=== PATIENT | female | born 1965 | race Caucasian/White ===

== ENCOUNTER → 2017-08-23 09:34 | Outpatient (CLI) | payer SELFPAY ==
[2017-08-23 12:42] LABS: T4 Free Direct 1.13 ng/dL (0.76-1.46); Thyroid Stim Hormone (TSH) 1.92 uIU/mL (0.358-3.74)
== END ==
PROVIDERS: Family Provider Internal Medicine; PCP Internal Medicine; Visit Provider Nurse Practitioner Family
DX: E03.9 Hypothyroidism, unspecified (principal)
CPT/HCPCS: 36415; 84439; 84443

== ENCOUNTER → 2020-05-24 09:45 | Outpatient (CLI) | payer SELFPAY ==
[2020-05-24 12:56] LABS: Cholesterol 181 mg/dL (200); High Density Lipoprotein 81 mg/dL; Thyroid Stim Hormone (TSH) 0.17 uIU/mL (0.358-3.74); Triglycerides 65 mg/dL; Very Low Density Lipoprotein 13 mg/dL (5-40)
== END ==
PROVIDERS: PCP Internal Medicine; Visit Provider Internal Medicine
DX: E03.9 Hypothyroidism, unspecified (principal); E78.5 Hyperlipidemia, unspecified
CPT/HCPCS: 36415; 80061; 84443

== ENCOUNTER → 2020-06-25 10:14 | Outpatient (CLI) | payer SELFPAY ==
[2020-06-24 16:44] VITALS: BMI 26.6
[2020-06-25 12:09] LABS: Erythrocyte Sedimentation Rate 2 mm/hr (0-30)
[2020-06-25 12:44] LABS: CRP < 2.90 mg/L (0.0-3.0); Rheumatoid Factor < 10.0 IU/mL (<15); Thyroid Stim Hormone (TSH) 0.18 uIU/mL (0.358-3.74)
[2020-06-28 08:48] LABS: CCP IgG Antibodies 4 units (0-19)
[2020-06-28 16:17] LABS: ANTINUCLEAR ANTIBODIES DIRECT Negative (Negative)
== END ==
PROVIDERS: PCP Internal Medicine; Referring Provider Internal Medicine; Visit Provider Internal Medicine
DX: E03.9 Hypothyroidism, unspecified (principal); M19.90 Unspecified osteoarthritis, unspecified site
CPT/HCPCS: 36415; 84443; 85652; 86038; 86140; 86200; 86225; 86235; 86431

== ENCOUNTER → 2020-08-16 10:01 | Outpatient (CLI) | payer SELFPAY ==
[2020-08-16 09:37] VITALS: BMI 26.6
[2020-08-16 13:17] LABS: Thyroid Stim Hormone (TSH) 0.31 uIU/mL (0.358-3.74)
== END ==
PROVIDERS: PCP Internal Medicine; Referring Provider Internal Medicine; Visit Provider Internal Medicine
DX: E03.9 Hypothyroidism, unspecified (principal)
CPT/HCPCS: 36415; 84443

== ENCOUNTER 2024-09-19 14:30 | Outpatient (RCR) | payer SELFPAY ==
--- NOTE | 2024-09-15 19:11 | HP.PTEVAL ---
Patient's Visit Information Visit Information Visit Information: KALEB REDDING is a 59 year old F referred to Physical Therapy by PETERSON Love with a diagnosis of RADICULOPATHY ,CERVICAL REGION ,STRAIN OF MUSCLE ,FASCIA. Date of Evaluation: 09/15/24 Physical Therapist: Robert Carrion, PT, Cert MDT, OCS Visit Plan Frequency: 1-2x /Week Duration: 4 Weeks Plan: HIGHLY IRRITATED PT INTERVENTIONS MODALITIES ( US/CP/ESTIM) ,LURDES EX'S ,GRADED POSTURAL EX'S AND ACTIVITY MODIFAICTION Subjective Subjective: This 59 y/o female presents to physical therapy with cervical radiculopathy left arm . Patient has had left cervical pain affecting left arm ~ 1 week . Pain was insidious onset. Patient symptoms worse driving to [place]. Seen r/o cardiac . Patient Urgent care tried injection for pain. [facility] -showed There is loss of the lordosis ,loss of disc height at C5-6.Medication muscle relaxer and prednisone pack. Patient left cervical and scapular triceps elbow to fingers with paresthesia to fingers. Aggravating sitting ,terrible ,driving ,extension. Alleviating factors flexion,resting ,ice. Pain affects sleeping. Coughing/sneezing -. Denies dizziness/tinnitus /nausea. Tried chiropractor/massage. No trauma /injury. Hobbies resell. Patient pain /symptoms affects QOL and function/job demands. Patient goals to decrease pain. SOCIAL: engaged VOCATION: [employer] Pain Left Scapula: Pain Intensity (Out of 10): 5 Pain Intensity Range: 10 Left Elbow: Pain Intensity (Out of 10): 7 Pain Intensity Range: 10 Objective Objective: POSTURE: mild forward posture ( guarded) -due to pain NEUR0: c/o paresthesia/tingling in left arm ,reflexes C5-6-7 1/3 ,myotome weakness C5 PALAPTION: tender global neck /paraspinals ,1ST rib but not elevated CERVICAL: flexion mod loss ,extension mod loss ,roatition mod ,lateral flexion mod loss ,retraction min loss AROM: BUE WFL MMT: grossly 4/5 ,except left biceps 4-/5 ,deltoid 4-/5 Special Tests C/S Radiculapathy - Left Upper limb tension test: Positive C/S Radiculapathy - Right Upper limb tension test: Negative C/S Radiculapathy - Left Spurlings: Positive C/S Radiculapathy - Right Spurlings: Negative C/S Radiculapathy - Left Cervical distraction: Negative C/S Radiculapathy - Right Cervical distraction: Negative C/S Radiculapathy - Left Relief test: Negative C/S Radiculapathy - Right Relief test: Negative Vertebral Artery Test: Negative Cervical Sitting: Protrusion - Mechanical Response: No effect Cervical Sitting: Protrusion - Symptoms During Testing: Increases Cervical Sitting: Protrusion - Symptoms After Testing: Worse Comments:: tricep Cervical Sitting: Retraction - Mechanical Response: No effect Cervical Sitting: Retraction - Symptoms During Testing: Increases Cervical Sitting: Retraction - Symptoms After Testing: Worse Comments:: tricep Cervical Sitting: Retraction-Extension - Mechanical Response: No effect Cerv Sitting: Retraction-Extension - Symptoms During Testing: Increases Cerv Sitting: Retraction-Extension - Symptoms After Testing: Worse Comments:: tricep Cervical Sitting: Sidebend Right - Mechanical Response: No effect Cervical Sitting: Sidebend Right - Symptoms During Testing: Increases Cervical Sitting: Sidebend Right - Symptoms After Testing: Worse Cervical Sitting: Sidebend Left - Mechanical Response: No effect Cervical Sitting: Sidebend Left - Symptoms During Testing: Increases Cervical Sitting: Sidebend Left - Symptoms After Testing: Worse Cervical Sitting: Rotation Right - Mechanical Response: No effect Cervical Sitting: Rotation Right - Symptoms During Testing: Increases Cervical Sitting: Rotation Right - Symptoms After Testing: Worse Cervical Sitting: Rotation Left - Mechanical Response: No effect Cervical Sitting: Rotation Left - Symptoms During Testing: Increases Cervical Sitting: Rotation Left - Symptoms After Testing: Worse Cervical Sitting: Flexion - Mechanical Response: No effect Cervical Sitting: Flexion - Symptoms During Testing: Increases Cervical Sitting: Flexion - Symptoms After Testing: Worse Cervical Lying: Retraction - Mechanical Response: No effect Cervical Lying: Retraction - Symptoms During Testing: Increases Cervical Lying: Retraction - Symptoms After Testing: Worse Balance/Special Test Scores Oswestry Neck Score: 36 Goals Goal 1:: Patient to be I with HEP cervical Goal Time Frame: 4-6 Weeks Goal 2:: Patient to improve cervical ROM for function of recovery for driving and ADL Goal Time Frame: 4-6 Weeks Goal 3:: Patient to demonstrate 50% improvement with less pain and improved function Goal Time Frame: 4-6 Weeks Goal 4:: Patient to improve neck oswestry score by 3-5 points to improve QOL and function Goal Time Frame: 4-6 Weeks Goal 5:: Patient to improve ability to perform ADL and housework tasks min symptoms. Goal Time Frame: 4-6 Weeks Rehabilitation Potential Physical Therapy Diagnosis: This patient has possible derangement below elbow with possible disc with pain worse with positioning and motion testing ,worse with sitting ,+ ANR left arm ,decrease ROM impairs ADLS and housework tasks thus benefit from skilled PT Rehabilitation Potential: Good Anticipated Interventions Patient/Client Instruction: Educate patient on: Condition and Plan of Care For the Purpose of:: To decrease pain, To increase ROM, To improve muscle performance and motor function, To increase tolerance to activity/condition/position, To improve ability of physical actions for home/community/work/leisure, To improve health of tissue, To decrease soft tissue restriction, To increase flexibility/ROM and To improve tolerance to ADL's Therapeutic Exercise to Include: Strength training, Flexibilty training, Active ROM and Yonatan Exercises For the Purpose of:: To decrease pain, To increase ROM, To improve muscle performance and motor function, To increase tolerance to activity/condition/position, To improve ability of physical actions for home/community/work/leisure, To improve health of tissue, To decrease soft tissue restriction and To increase flexibility/ROM TENS: Yes IF ES: Yes Cryotherapy (ice pack, ice massage): Yes Thermo therapy (hot pack): Yes Ultrasound (thermal/non thermal): Yes For the Purpose of:: To decrease pain, To increase ROM, To improve nutrient delivery to tissue, To increase oxygenation perfusion, To improve health of tissue and To decrease soft tissue restriction Text: Thank you for the opportunity to evaluate your patient. For Medicare and Medicare HMO plans, please review the plan of care and approve it. It will need to be FAXED BACK to us at [phone] for Medicare purposes. For Medicare only, by signing this I certify the plan of care. Please let me know if there are questions or concerns regarding this plan of care. Physician Signature: Date:
--- NOTE | 2024-11-05 08:34 | HP.PT.NRP ---
Patient Information Patient Information: KALEB REDDING was seen in my office for initial evaluation on 09/15/24. The following Plan of Care was established for this patient: POC Established Initial Frequency: 1-2x /Week Initial Duration: 4 Weeks Anticipated Interventions Patient/Client Instruction: Educate patient on: Condition and Plan of Care For the Purpose of:: To decrease pain, To increase ROM, To improve muscle performance and motor function, To increase tolerance to activity/condition/position, To improve ability of physical actions for home/community/work/leisure, To improve health of tissue, To decrease soft tissue restriction, To increase flexibility/ROM and To improve tolerance to ADL's Therapeutic Exercise to Include: Strength training, Flexibilty training, Active ROM and Yonatan Exercises For the Purpose of:: To decrease pain, To increase ROM, To improve muscle performance and motor function, To increase tolerance to activity/condition/position, To improve ability of physical actions for home/community/work/leisure, To improve health of tissue, To decrease soft tissue restriction and To increase flexibility/ROM TENS: Yes IF ES: Yes Cryotherapy (ice pack, ice massage): Yes Thermo therapy (hot pack): Yes Ultrasound (thermal/non thermal): Yes For the Purpose of:: To decrease pain, To increase ROM, To improve nutrient delivery to tissue, To increase oxygenation perfusion, To improve health of tissue and To decrease soft tissue restriction Last Seen Last Seen: This patient was last seen in our office . Pertinent comments regarding their Physical therapy will appear below: This patient seen cervical radiculopathy for HEP thus d/c At this point I will be discontinuing this patient from physical therapy. I would be happy to see this patient again in the future if found appropriate by the physician. Thank you! Robert Carrion, PT, Cert MDT, OCS Balance/Gait/Functional tests Balance/Special Test Scores Oswestry Neck Score: 36
== END 2024-09-19 19:00 | disposition home or self-care (01) ==
LOC: PT 14:30
PROVIDERS: PCP Internal Medicine; Referring Provider Physician Assistant; Visit Provider Physician Assistant
DX: S16.1XXD Strain of muscle, fascia and tendon at neck level, subsequent encounter (principal); M54.12 Radiculopathy, cervical region
CPT/HCPCS: 97014; 97162; 97530; G0283